=== PATIENT | male | born 1945 | race Caucasian/White ===

== ENCOUNTER → 2017-02-27 | Day surgery (SDC) | payer MEDICARE, OTHER ==
[~2017-02-27] MED LIST: AMIT100T PO; AMIT50TA PO; CITA20SO PO; CITA20TA5 PO; DUTA1CPM PO; ERGO400T PO; FOLI1TAB16 PO; GABA600T2 PO; HYDR200T5 PO; IV RINGERS,LACTATED 1000ML 1,000 ML IV SCH; LEVO150T5 PO; LIDOCAINE 1% 1 ML SYRINGE. ID PRN; METH25VI27 IJ; OMEP40CA5 PO; OXYC-328 PO; PRED1TAB3 PO; PROCHLORPERAZINE 10 MG/2 ML VIAL. IV PRN; PROPOFOL 20 ML IV ONE; RANI300T3 PO; SITA1TAB11 PO; SULF500T7 PO; TADA5TAB PO; TEMA15CA PO; TEST200V3 IM; ZOLP5TAB PO; fentaNYL PF VIAL 100 MCG/2 ML VIAL IV PRN
[2017-02-27 09:22] VITALS: BP 111/60
== END | disposition home or self-care (01) ==
LOC: SURG 07:36
PROVIDERS: ATTEND Internal Medicine Gastroenterology
DX: Z09 Encounter for follow-up examination after completed treatment for conditions other than malignant neoplasm (principal); Z86.010 Personal history of colon polyps; K64.0 First degree hemorrhoids; K57.30 Diverticulosis of large intestine without perforation or abscess without bleeding; M06.9 Rheumatoid arthritis, unspecified; F32.9 Major depressive disorder, single episode, unspecified; E11.9 Type 2 diabetes mellitus without complications; M19.90 Unspecified osteoarthritis, unspecified site; E03.9 Hypothyroidism, unspecified; Z88.6 Allergy status to analgesic agent; Z87.11 Personal history of peptic ulcer disease; Z87.891 Personal history of nicotine dependence
CPT/HCPCS: 45378; J2704